=== PATIENT | female | born 1940 | race Caucasian/White ===

== ENCOUNTER → 2019-08-05 | Outpatient (CLI) | payer MEDICARE ==
[~2019-08-05] MED LIST: ALL10TAB29 PO; ASPI81TA85 PO; COLC1TAB13 PO; ESCI10TA2 PO; FURO20TA2 PO; GLIM2TAB29 PO; HYDR-3910 PO; LEVO50TA5 PO; LOSA25TA14 PO; MACR100C43 PO; METF500T13 PO; METO1TAB32 PO; MULTTAB86 PO; OXYB5TAB10 PO; PANT40TA3 PO; POTA10CA32 PO; SIMV10TA21 PO; SPIR-10 PO; SYNT50TA PO; VITA50005 PO; XARE15TA PO
== END ==
LOC: M PLARAD 07:27
PROVIDERS: ATTEND Internal Medicine Hematology
DX: C07 Malignant neoplasm of parotid gland (principal); Z53.9 Procedure and treatment not carried out, unspecified reason